=== PATIENT | male | born 1965 | race Caucasian/White ===

== ENCOUNTER 2022-08-19 18:17 | Inpatient (IN) | payer BC ==
[~2022-08-19] VITALS: Ht 180.3 cm; Wt 124.7 kg
--- NOTE | 2022-08-19 18:50 | NUR ---
WALKED IN TO ER C/O LEFT LEG NUMBNESS AND WEAKNESS TODAY. PT STATES "I BECAME SO WEAK ON THAT LEG THAT I FELL OFF MY CHAIR WHEN I TRIED TO STAND UP". PT DID NOT PRESENT WITH SLURRED SPEECH OR FACIAL DROOP UPON ARRIVAL. EQUAL PROMOTION MANAGER AND NO DRIFT. PT AMBULATED TO BED WITH STEADY GAIT. VSS. AAOX4. BREATHING EVEN AND UNLABORED. SAFETY PRECAUTIONS IN PLACE, AWAITING MD ORDERS.
--- NOTE | 2022-08-19 19:04 | NUR ---
ESTABLISHED IV ACCESS 18G RIGHT AC. BLOOD DRAWN AND SENT TO LAB.
--- NOTE | 2022-08-19 19:05 | NUR ---
COVID SWAB COLLECTED AND SENT TO LAB.
--- NOTE | 2022-08-19 19:37 | NUR ---
URINE SAMPLE COLLECTED AND SENT TO LAB
--- NOTE | 2022-08-19 19:49 | NUR ---
PATIENT TAKEN TO CT VIA YULISSA
[2022-08-19 20:04] LABS: CHOLESTEROL 116 mg/dL (<200); HDL CHOLESTEROL 37 mg/dL (40-60); LDL 61 mg/dL (0-99); TRIGLYCERIDES 134 mg/dL (30-150)
[2022-08-19 20:17] LABS: ALANINE AMINOTRANSFERASE 60 U/L (12-78); ALBUMIN 4.5 g/dL (3.4-5.0); ALKALINE PHOSPHATASE 63 U/L (46-116); ASPARTATE AMINOTRANSFERASE 23 U/L (15-37); BILIRUBIN,DIRECT 0.2 mg/dL (0.0-0.2); BILIRUBIN,TOTAL 0.5 mg/dL (0.2-1.0); CALCIUM, SERUM 9.4 mg/dL (8.5-10.1); CARBON DIOXIDE 24 mmol/L (21-32); CHLORIDE 100 mmol/L (98-107); CREATININE 0.8 mg/dL (0.6-1.3); GLUCOSE 116 mg/dL (74-106); POTASSIUM 3.7 mmol/L (3.5-5.1); SODIUM SERUM 134 mmol/L (136-145); UREA NITROGEN, BLOOD 19 mg/dL (7-18)
[2022-08-19 20:31] LABS: BASOPHILS % (AUTO) 0.4 % (0.0-2.0); EOSINOPHILS % (AUTO) 2.5 % (0.0-6.0); HEMATOCRIT 52 % (39-51); HEMOGLOBIN 17.9 g/dL (13.5-17.5); LYMPHOCYTES # (AUTO) 1.3 K/uL (0.8-4.8); LYMPHOCYTES % (AUTO) 13.2 % (20.0-44.0); MEAN CORPUSCULAR HGB CONC 34 g/dl (31.0-36.0); MEAN CORPUSCULAR VOLUME 97 fL (80-96); MONOCYTES # (AUTO) 0.8 K/uL (0.1-1.30); MONOCYTES % (AUTO) 7.7 % (2.0-12.0); NEUTROPHILS # (AUTO) 7.6 K/uL (1.8-8.9); NEUTROPHILS % (AUTO) 76.2 % (43.0-81.0); PLATELET COUNT (AUTO) 264 K/uL (150-450); RED BLOOD CELL COUNT(AUTO) 5.35 MIL/uL (4.5-6.0); WHITE BLOOD COUNT (AUTO) 9.9 K/uL (4.3-11.0)
[2022-08-19] MEDS ORDERED: IV NS 0.9% 1,000 ML IV SCH (21:00)
[2022-08-19] MEDS ORDERED: ACETAMINOPHEN 325 MG TABLET PO PRN (21:00)
[2022-08-19] MEDS ORDERED: MAG HYDROX/AL HYDROX/SIMETH 30 ML UDC PO PRN (21:00)
[2022-08-19 21:16] LABS: BILIRUBIN,URINE NEGATIVE (NEGATIVE); COLOR,URINE YELLOW (YELLOW); LEUKOCYTE ESTERASE ,URINE NEGATIVE (NEGATIVE); NITRITE, URINE NEGATIVE (NEGATIVE); PH,URINE 5.5 (5.0-8.0); PROTEIN,URINE NEGATIVE (NEGATIVE); UGLUCOSE 3+ mg/dL (NEGATIVE); UROBILINOGEN,URINE 0.2 EU/dL (0.2)
--- NOTE | 2022-08-19 21:30 | NUR ---
PT TAKEN TO CT VIA YULISSA
[2022-08-19] MEDS ORDERED: IV NS 0.9% 250 ML IV ONE (21:33)
[2022-08-19] MEDS ORDERED: IOHEXOL-350 100 ML VIAL IV ONE (21:33)
--- NOTE | 2022-08-19 21:48 | NUR ---
PT RETURNED TO ER BED [address]
[2022-08-19 21:52] LABS: BACTERIA,URINE Few /HPF (None Seen); RBC,URINE 0-2 /HPF (0-2); SQUAMOUS EPITHELIAL CELL,UR Few /HPF (None Seen); WBC,URINE NONE SEEN /HPF (0-3)
[2022-08-19] MEDS ORDERED: SIMVASTATIN 40 MG TABLET PO SCH (22:00)
[2022-08-19] MEDS ORDERED: ENOXAPARIN SODIUM 40 MG/0.4 ML DISP.SYRIN SQ SCH (23:04)
--- NOTE | 2022-08-19 23:30 | NUR ---
STARTED IV NS 2 50CC/HR, BLOOD SUGAR CHECKED 83 MG/DL.
[2022-08-20] MEDS ORDERED: BLOOD SUGAR DIAGNOSTIC 1 EACH STRIP IN SCH
--- NOTE | 2022-08-20 00:12 | NUR ---
REPORT GIVEN TO THALIA Martínez RN FOR KYLIE
--- NOTE | 2022-08-20 01:29 | NUR ---
PT TRANSFERRED TO [facility] VIA ACLS PROTOCOL. VS WNL.
[2022-08-20 01:40] VITALS: BP 140/68
--- NOTE | 2022-08-20 02:55 | NUR ---
ALUMINA REFINERY OPERATOR ADMITTING NOTES ADMITTED AT 56 Y/O MALE FROM ER VIA GURNEY, PATIENT IS A/O X 4. PATIENT IS BREATHING EVENLY AND UN LABORED ON ROOM AIR. NO SIGNS OF DISTRESS NOTED. VITAL SIGNS OF T:98.1 BP:140/68 HR:100 RR: 18 SPO2:5% . PATIENT DENIES ANY PAIN OR DISCOMFORT AT THIS MOMENT. SKIN ASSESSMENT PERFORMED, SKIN C/D/I. NO EDEMA PRESENT OR SKIN WOUND NOTED. BOWEL SOUNDS ACTIVE, PATIENT HAS IV ACCESS LAC #18G WITH NS 1000ML AT 50ML/HR INFUSING WELL. SKIN ASSESSMENT DONE SKIN WAS C/D/I. [facility] ASSESSMENT DONE, NURSE SWALLOWING EVALUATION DONE USING APPLE SAUCE PATIENT TOLERATED WELL WITH NO EVIDENCE OF COUGHING AND CHOKING NOTED. NO DROOLING OF SALIVA, FACE IS SYMMETRICAL, ALL EXTREMITIES ARE ASSESSED NO NOTED OF WEAKNESS, PATIENT ABLE TO WALK AND STAND STEADY. NO SLURRED SPEECH NOTED. PATIENT IS ORIENTED TO TIME, PLACE AND PERSON. ATTACHED PATIENT TO TELE MONITORING DEVICE. HEALTH TEACHING REGARDING STROKE AND HEALTHY LIFESTYLE DONE AND ACKNOWLEDGE BY THE PATIENT. PATIENT IS ON STILL ON STRICT ASPIRATION PRECAUTION AND FALL RISK PRECAUTION. PATIENT IS COOPERATIVE AND UNDERSTAND WELL. PATIENT IS ORIENTED TO ROOM AND FACILITY, TEACH PATIENT HOW TO OPERATE CALL LIGHT AND TELEVISION WELL TELEPHONE.PHYSICAL ASSESSMENT AND HISTORY TAKEN AND RECORDED. BELONGINGS ACCOUNTED FOR AND SAFETY MEASURES IN PLACED,PATIENT IS ON BEDREST. KEPT BED ON LOWER LOCKED POSITION AND KEPT SIDE RAILS UP X 4 ALL THE TIME. KEPT CALL LIGHT WITHIN AT REACH. WILL CONTINUE TO MONITOR.
[2022-08-20] MEDS: BLOOD SUGAR DIAGNOSTIC 1 EACH STRIP IN SCH ×3 (03:21→11:35)
--- NOTE | 2022-08-20 04:21 | NUR ---
PHOTOGRAPHY COLORIST NOTES SIMVASTATIN 40MG NOT GIVEN. PATIENTS PREFERS TO TAKE IT AT NIGHT TIME. WILL CONTINUE TO MONITOR
[2022-08-20 05:00] VITALS: BP 129/75
[2022-08-20 06:20] LABS: BASOPHILS % (AUTO) 0.6 % (0.0-2.0); EOSINOPHILS % (AUTO) 3.7 % (0.0-6.0); HEMATOCRIT 48 % (39-51); HEMOGLOBIN 16.5 g/dL (13.5-17.5); LYMPHOCYTES % (AUTO) 24.6 % (20.0-44.0); MEAN CORPUSCULAR HGB CONC 34 g/dl (31.0-36.0); MEAN CORPUSCULAR VOLUME 97 fL (80-96); MONOCYTES # (AUTO) 0.9 K/uL (0.1-1.30); MONOCYTES % (AUTO) 11.5 % (2.0-12.0); NEUTROPHILS # (AUTO) 4.8 K/uL (1.8-8.9); NEUTROPHILS % (AUTO) 59.6 % (43.0-81.0); PLATELET COUNT (AUTO) 236 K/uL (150-450); RED BLOOD CELL COUNT(AUTO) 4.96 MIL/uL (4.5-6.0); WHITE BLOOD COUNT (AUTO) 8.1 K/uL (4.3-11.0)
[2022-08-20 06:24] VITALS: BP 129/75
--- NOTE | 2022-08-20 06:42 | NUR ---
FLOW WORKER CLOSING NOTES PATIENT IS IN BED, AWAKE AND COHERENT. ON MODERATE HIGH BACK REST POSITION. ON ROOM AIR SATURATING WELL. BREATH EVENLY. NO EPISODE OF PAIN OR DISCOMFORT AT THIS TIME. NO ONSET OF S/S OF STROKE NOTED. ATTACHED TO TELE MONITORING DEVICE. WITH IV ACCESS RAC #18G WITH NS AT 500 ML/HR INFUSING WELL. WITH STABLE VITAL SIGNS. KEPT BED ON LOWER LOCKED POSITION, KEPT SIDE RAILS X 2 ALL THE TIME. KEPT CALL LIGHT WITHIN AT REACH. WILL ENDORSED TO AM SHIFT FOR KYLIE.
[2022-08-20 07:12] LABS: ALBUMIN 3.8 g/dL (3.4-5.0); BILIRUBIN,TOTAL 0.5 mg/dL (0.2-1.0); CALCIUM, SERUM 8.8 mg/dL (8.5-10.1); CREATININE 0.8 mg/dL (0.6-1.3); MAGNESIUM 2.5 mg/dL (1.8-2.4); PHOSPHORUS 3.9 mg/dL (2.5-4.9); POTASSIUM 3.3 mmol/L (3.5-5.1); TOTAL PROTEIN, SERUM 6.8 g/dL (6.4-8.2)
[2022-08-20] MEDS ORDERED: PANTOPRAZOLE 40 MG TABLET.DR PO SCH (07:30)
--- NOTE | 2022-08-20 07:30 | NUR ---
ADMIN SECRETARY OPENING NOTES PATIENT IN BED, AWAKE AND COHERENT. A/O X 4, ABLE TO MAKE NEEDS KNOWN. NO C/O PAIN/DISCOMFORT AT THIS TIME. ON ROOM AIR, SATURATING WELL. NO ONSET OF S/S OF STROKE NOTED. WITH IV ACCESS RAC #18G WITH NS AT 50 ML/HR INFUSING WELL. CONNECTED TO BALL TRUING MACHINE OPERATOR WITH CURRENT READING OF SR, HR 81. SAFETY MEASURES IN PLACE: KEPT BED LOCKED AND IN LOWEST POSITION, SIDE RAILS X 2, CALL LIGHT AND TRAY TABLE WITHIN EASY REACH. WILL CONTINUE TO MONITOR.
[2022-08-20 07:31] LABS: THYROID STIMULATING HORMONE 3.788 uIU/mL (0.358-3.74)
[2022-08-20] MEDS ORDERED: ASPIRIN EC 325 MG TABLET.DR PO SCH (09:00)
[2022-08-20] MEDS ORDERED: AMLO10TA4 PO (09:13)
[2022-08-20] MEDS ORDERED: METF-440 PO (09:13)
[2022-08-20] MEDS ORDERED: ASCO-352 PO (09:13)
[2022-08-20] MEDS ORDERED: CHOL100043 PO (09:13)
[2022-08-20] MEDS ORDERED: ZINC50TA69 PO (09:13)
[2022-08-20] MEDS ORDERED: EMPA10TA PO (09:13)
[2022-08-20] MEDS ORDERED: LOSA100T31 PO (09:13)
[2022-08-20] MEDS ORDERED: VENL75CA62 PO (09:13)
[2022-08-20] MEDS ORDERED: ROSU10TA29 PO (09:13)
[2022-08-20] MEDS ORDERED: ASPI-1169 PO (09:13)
[2022-08-20] MEDS ORDERED: IV NS 0.9% 1,000 ML IV PRN (09:50)
[2022-08-20] MEDS ORDERED: POTASSIUM CHLORIDE 20 MEQ TAB.PRT.SR PO SCH (11:30)
[2022-08-20] MEDS ORDERED: ROSU40TA PO (12:48)
--- NOTE | 2022-08-20 13:55 | NUR ---
RN DISCHARGED NOTE PATIENT DISCHARGED TO HOME IN STABLE CONDITION. A/O X 4, ABLE TO MAKE NEEDS KNOWN. ON ROOM AIR, TOLERATED WELL. V/S TAKEN AND RECORDED. IV ACCESS ON THE RAC REMOVED, DRY DRESSING APPLIED ON SITE. MITER SAWYER DISCONNECTED TO PT. ALL BELONGINGS ACCOUNTED FOR. DISCHARGE INSTRUCTIONS GIVEN TO PT AND . BOTH VERBALIZED UNDERSTANDING. NAME ARM BAND REMOVED. MD AND CHARGE NURSE AWARE OF DISCHARGE. PT LEFT THE UNIT @ 1348 VIA WHEELCHAIR ACCOMPANIED BY RN ON DUTY.
[2022-08-20] MEDS ORDERED: SIMVASTATIN 20 MG TABLET PO SCH (22:00)
--- NOTE | 2022-08-22 11:01 | NUR ---
LUCI Note: Patient discharged from the hospital and SW unable to consult pt.
== END 2022-08-20 13:45 | disposition home or self-care (01) | DRG 74 ==
LOC: ER 18:22 → TELE 22:26
PROVIDERS: ADMIT Registered Nurse; ATTEND Nurse Practitioner Family
DX: M54.10 Radiculopathy, site unspecified (principal); G45.9 Transient cerebral ischemic attack, unspecified; G81.94 Hemiplegia, unspecified affecting left nondominant side; W07.XXXA Fall from chair, initial encounter; I10 Essential (primary) hypertension; E86.0 Dehydration; E66.01 Morbid (severe) obesity due to excess calories; Z68.38 Body mass index [BMI] 38.0-38.9, adult; E11.9 Type 2 diabetes mellitus without complications; Z20.822 Contact with and (suspected) exposure to COVID-19; E78.00 Pure hypercholesterolemia, unspecified; Y92.009 Unspecified place in unspecified non-institutional (private) residence as the place of occurrence of the external cause; Z87.891 Personal history of nicotine dependence; M48.00 Spinal stenosis, site unspecified
CPT/HCPCS: 36415; 70450-TC; 70498-TC; 71045-TC; 80048-TC; 80053-TC; 80061-TC; 80076-TC; 81001; 82962-TC; 83735-TC; 84100-TC; 84439-TC; 84443-TC; 84484-TC; 85025-TC; 85730-TC; 87081-TC; 93307-TC; 97116-TC; 97530-TC; A4223; C9803; G0378; J1650; J7030; J7050; Q9967